=== PATIENT | male | born 1935 ===

== ENCOUNTER 2021-09-07 12:45 | Outpatient (REF) | payer MEDICARE, SELFPAY ==
[2021-09-07 11:46] LABS: Eosinophils Percent Auto 0.7 % (0-4); Hematocrit 28.5 % (42.0-52.0); Imm Gran Abs Auto 0.02 X10*3/uL (0.00-0.03); Imm Gran Pct Auto 1.3 % (0.0-0.4); Lymphocytes Absolute Auto 0.7 X10*3/uL (1.2-4.9); MANUAL DIFF FLAG SCAN; Mean Corpuscular HGB Conc 31.6 g/dl (31.0-36.0); Mean Corpuscular Hemoglobin 35.9 pg (27.0-33.0); Mean Platelet Volume 10.8 fL (9.4-12.4); Monocytes Absolute Auto 0.4 X10*3/uL (0.1-1.2); Monocytes Percent Auto 27.2 % (2-11); Neutrophils Absolute Auto 0.3 x10*3/uL (2.0-8.3); Neutrophils Percent Auto 19.8 % (45-73); Red Blood Count 2.51 X10*6/uL (4.60-5.80); Red Cell Distribution Width 15.8 % (11.0-16.0); SCAN SMEAR FLAG 1
[2021-09-07 11:48] LABS: Mean Corpuscular Volume 113.5 fL (80.0-98.0); Platelet Count 99 X10*3/uL (160-400); White Blood Count 1.5 X10*3/uL (4.8-10.8)
[2021-09-07 11:50] LABS: Appearance Urine CLEAR; Color Urine YELLOW; Glucose Urine UA NEG (NEG); Leukocyte Esterase Urine NEG (NEG); Nitrite Urine NEG (NEG); Specific Gravity - Urine <= 1.005 (1.005-1.025); Urine Blood TRACE (NEG); Urine Ketones NEG (NEG); Urine Protein NEG (NEG-TRACE)
[2021-09-07 11:55] LABS: Estimated Average Glucose 100 mg/dL; Hemoglobin A1c % 5.1 %
[2021-09-07 12:08] LABS: Alanine Aminotransferase 13 U/L (0-40); Alkaline Phosphatase 134 U/L (39-117); Anion Gap 9 (12-20); Aspartate Amino Transferase 16 U/L (5-37); Bilirubin Total 2.9 mg/dL (0.0-1.0); Blood Urea Nitrogen 6 mg/dL (9-16); Calcium 9.2 mg/dL (8.4-10.2); Carbon Dioxide 32 mmol/L (22-29); Chloride 101 mmol/L (96-108); Cholesterol 103 mg/dL; Estimated Glomerular Filt Rate > 60; Glucose Random 119 mg/dL (60-115); HDL Cholesterol 49 mg/dL; LDL Cholesterol Calculated 46 mg/dl; Potassium 3.6 mmol/L (3.3-5.1); Sodium 138 mmol/L (135-145); Total Protein 6.5 g/dL (6.5-8.0); Triglycerides 42 mg/dL
[2021-09-07 12:15] LABS: Gamma Glutamyl Transpeptidase 83 U/L (11-51)
[2021-09-07 12:17] LABS: Creatinine Urine 65.97 mg/dL; Microalbum/Creatinine Ratio Ur 10.6 ug/mg cr
[2021-09-07 12:18] LABS: SLIDE REVIEW VERIFIED
[2021-09-07 12:19] LABS: RBC Urine 0-2 /HPF (0)
[2021-09-07 12:20] LABS: WBC Urine 0 /HPF (0-4)
[2021-09-07 12:25] LABS: Free T4 (Free Thyroxine) 1.02 ng/dL (0.71-1.85)
[2021-09-07 12:38] LABS: Folate 17.6 ng/mL (> or = 4.0); Vitamin B12 285 pg/mL (200-900)
== END 2021-09-07 12:46 | disposition home or self-care (01) ==
LOC: HO.LHD 12:45
PROVIDERS: Visit Provider Internal Medicine
DX: I48.0 Paroxysmal atrial fibrillation (principal); I50.32 Chronic diastolic (congestive) heart failure; R73.01 Impaired fasting glucose; R41.3 Other amnesia; R74.8 Abnormal levels of other serum enzymes; R35.1 Nocturia; E78.00 Pure hypercholesterolemia, unspecified; E55.9 Vitamin D deficiency, unspecified; F41.9 Anxiety disorder, unspecified
CPT/HCPCS: 36415; 80053; 80061; 81001; 82043; 82306; 82607; 82746; 82977; 83036; 84439; 84443; 85025

== ENCOUNTER 2022-06-26 06:50 | Outpatient (REF) | payer MEDICARE, SELFPAY ==
[2022-06-26 11:40] LABS: Hematocrit 28.5 % (42.0-52.0); Mean Corpuscular HGB Conc 31.6 g/dl (31.0-36.0); Mean Platelet Volume 10.3 fL (9.4-12.4); Red Cell Distribution Width 15.9 % (11.0-16.0)
[2022-06-26 11:41] LABS: Platelet Count 95 X10*3/uL (160-400)
[2022-06-26 11:43] LABS: White Blood Count 1.5 X10*3/uL (4.8-10.8)
[2022-06-26 11:55] LABS: Alanine Aminotransferase 6 U/L (0-40); Albumin Level 4.2 g/dL (3.5-5.0); Alkaline Phosphatase 168 U/L (39-117); Anion Gap 15 (12-20); Aspartate Amino Transferase 14 U/L (5-37); Bilirubin Total 3.6 mg/dL (0.0-1.0); Blood Urea Nitrogen 8 mg/dL (9-16); Calcium 8.8 mg/dL (8.4-10.2); Carbon Dioxide 29 mmol/L (22-29); Chloride 99 mmol/L (96-108); Cholesterol 105 mg/dL; Estimated Glomerular Filt Rate > 60; Glucose Random 128 mg/dL (60-115); HDL Cholesterol 50 mg/dL; LDL Cholesterol Calculated 46 mg/dl; Potassium 3.6 mmol/L (3.3-5.1); Sodium 139 mmol/L (135-145); Total Protein 6.9 g/dL (6.5-8.0); Triglycerides 46 mg/dL
[2022-06-26 11:58] LABS: Appearance Urine Clear; Color Urine Yellow; Glucose Urine UA Negative (Negative); Leukocyte Esterase Urine Negative (Negative); Nitrite Urine Negative (Negative); Urine Blood Negative (Negative); Urine Ketones Negative (Negative); Urine Protein Negative (Neg-Trace)
[2022-06-26 12:04] LABS: Estimated Average Glucose 105 mg/dL; Hemoglobin A1c % 5.3 %
[2022-06-26 12:16] LABS: Free T4 (Free Thyroxine) 1.01 ng/dL (0.71-1.85); Thyroid Stimulating Hormone 4.57 uIU/mL (0.32-4.0); Vitamin D 25-OH Total 19.8 ng/mL (>30)
[2022-06-26 12:40] LABS: Atypical Lymphs Percent Manual 2 % (0-6); Band Neutrophils Percent 6 % (3-5); Lymphocytes Absolute Manual 0.7 X10*3/uL (1.2-4.9); Lymphocytes Percent Manual 48 % (20-40); Metamyelocytes Percent 2 %; Monocytes Absolute Manual 0.4 X10*3/uL (0.1-1.2); Monocytes Percent Manual 24 % (2-11); Neutrophils Absolute Manual 0.4 X10*3/uL (2.0-8.3); Neutrophils Percent Manual 18 % (45-73)
[2022-06-26 12:46] LABS: Macrocytosis 1+ (5-14) /OIF; RBC Morphology NOTED
[2022-06-26 12:47] LABS: Acanthocytes 1+ (0-2) /OIF; Ovalocytes 1+ (5-14) /OIF
[2022-06-26 12:48] LABS: Platelet Estimate DECREASED (NORMAL); Platelet Morphology Comment NORMAL; Schistocytes 1+ (0-2) /OIF
[2022-06-26 12:50] LABS: Vitamin B12 769 pg/mL (200-900)
[2022-07-01 17:52] LABS: Methylmalonic Acid 112 nmol/L (87-318)
== END 2022-06-26 06:51 | disposition home or self-care (01) ==
LOC: HO.LHD 06:50
PROVIDERS: Visit Provider Internal Medicine
DX: D61.818 Other pancytopenia (principal); I50.32 Chronic diastolic (congestive) heart failure; I48.0 Paroxysmal atrial fibrillation; R41.3 Other amnesia; E78.00 Pure hypercholesterolemia, unspecified; R73.01 Impaired fasting glucose; R35.1 Nocturia; E55.9 Vitamin D deficiency, unspecified
CPT/HCPCS: 36415; 80053; 80061; 81003; 82306; 82607; 83036; 83921; 84439; 84443; 85007; 85025; 85027; 87086